=== PATIENT | male | born 1985 | race Caucasian/White ===

== ENCOUNTER 2021-02-05 09:45 | Inpatient (IN) | payer OTHER ==
[2021-02-05 11:16] LABS: CHLORIDE,CL 102 mmol/L (98-107); SODIUM,NA 139 mmol/L (136-145)
[2021-02-05 11:17] LABS: ANION GAP 12.8 mmol/L (5-15)
[2021-02-05] MEDS ORDERED: Acetaminophen 325 MG Tab PO PRN (11:19)
[2021-02-05] MEDS ORDERED: REMDESIVIR 200 MG in Sodium Chloride 0.9% 250 ML IV ONE (11:45)
--- NOTE | 2021-02-05 12:06 | PCM.HP.2 ---
H&P History of Present Illness - General Date of Service: 02/05/21 Admit Problem/Dx: Admission Diagnosis/Problem Admission Diagnosis/Problem Hypoxia Source of Information: Patient History Limitations: Reports: No Limitations - History of Present Illness Initial Comments - Free Text/Narative: Mr. Soriano is a 35 yo male with no PMH who presented to the clinic yesterday for worsening shortness of breath. He started with cough, rhinorrhea, congestion, loss of taste/smell, fever, and shortness of breath around 01/24. Most symptoms have improved/resolved. He is still feeling short of breath and that symptom has been progressively worsening. His has not been getting much sleep as she has felt the need to keep an eye on him at night due to breathing abnormalities. He can barely do much of anything before he starts to feel short of breath. His cough is minimal and he has had no recurrence of fever. Appetite is not great but he is eating/drinking ok. No myalgias or headaches. He has no history of any lung issues. He is a former smoker but quit 15 years ago. Hospitalization was discussed yesterday but then his O2 saturations improved. He was started on dexamethasone, given a home monitoring kit, and advised to return to clinic to follow up today. Upon arrival to the clinic, his oxygen saturations were in the upper 80's and he was started on oxygen. His reports that at home his saturations have ranged from 87-92%. - Related Data Allergies/Adverse Reactions: Allergies Allergy/AdvReac Type Severity Reaction Status Date / Time No Known Drug Allergies Allergy no known Verified 02/05/21 10:19 drug allergies Home Medications: Home Meds Ascorbate Calcium [Vitamin C] 500 mg PO DAILY 02/05/21 [History] Multivits,Ca,Min/Iron/FA/Lycop [Men Under 50 Multivitamin Tab] 1 tab PO DAILY 02/05/21 [History] Zinc 50 mg PO DAILY 02/05/21 [History] dexAMETHasone [Dexamethasone] 6 mg PO DAILY 02/05/21 [History] Past Medical History - Past Health History Medical/Surgical History: Denies Medical/Surgical History - Infectious Disease History Infectious Disease History: Reports: Novel Coronavirus Social & Family History - Family History Respiratory: Reports: Asthma (dad) - Tobacco Use Tobacco Use Status *Q: Former Tobacco User - Alcohol Use Alcohol Use History: No Days Per Week of Alcohol Use: 1 Number of Drinks Per Day: 2 Total Drinks Per Week: 2 Alcohol Use in Last Twelve Months: Yes Alcohol Use Frequency: Rarely - Recreational Drug Use Recreational Drug Use: No Drug Use in Last 12 Months: No - Living Situation & Occupation Living situation: Reports: , with Family Occupation: Employed ([employer]) H&P Review of Systems - Review of Systems: Review Of Systems: See Below General: Reports: No Symptoms HEENT: Reports: No Symptoms Pulmonary: Reports: Shortness of Breath, Cough Cardiovascular: Reports: No Symptoms Gastrointestinal: Reports: No Symptoms Genitourinary: Reports: No Symptoms Musculoskeletal: Reports: No Symptoms Skin: Reports: No Symptoms Psychiatric: Reports: No Symptoms Neurological: Reports: No Symptoms Hematologic/Lymphatic: Reports: No Symptoms Exam - Exam Exam: See Below - Vital Signs Vital Signs: Last Vital Signs Temp 36.7 C 02/05/21 09:51 Pulse 90 02/05/21 09:51 Resp 16 02/05/21 09:51 BP 117/79 02/05/21 09:51 Pulse Ox 98 02/05/21 11:19 Weight: 95.254 kg - Exam General: Alert, Oriented, Cooperative HEENT: Conjunctiva Clear, Mucosa Moist & [place], Posterior Pharynx Clear, Pupils Equal, Pupils Reactive Neck: Supple, Trachea Midline. No: Lymphadenopathy, Thyromegaly Lungs: Normal Respiratory Effort, Crackles (scattered throughout the lungs bilaterally) Cardiovascular: Regular Rate, Regular Rhythm, Normal S1, Normal S2 GI/Abdominal Exam: Normal Bowel Sounds, Soft, Non-Tender, No Organomegaly, No Distention, No Mass Extremities: Normal Inspection, Normal Range of Motion, Non-Tender, No Pedal Edema, Normal Capillary Refill Peripheral Pulses: 2+: Radial (L), Radial (R) Skin: Warm, Dry, Intact Neuro Extensive - Mental Status: Alert, Oriented x3, Normal Cognition - Patient Data Lab Results Last 24 hrs: Laboratory Results - last 24 hr 02/05/21 02/05/21 02/05/21 Range/Units 10:45 10:45 10:45 WBC 7.7 (4.0-10.0) x10^3/uL RBC 4.92 (4.5-6.0) x10^6/uL Hgb 15.2 (14.0-18.0) g/dL Hct 42.6 (40.0-52.0) % MCV 86.6 (78.0-93.0) fL MCH 30.9 (26.0-32.0) pg MCHC 35.7 (32.0-36.0) g/dL RDW Coeff of Jaya 11.3 (10.0-15.0) % Plt Count 342 (130-400) x10^3/uL Add Manual Diff Yes Neutrophils % (Manual) 87 H (50-80) % Band Neutrophils % 2 (0-6) % Lymphocytes % (Manual) 5 L (25-50) % Atypical Lymphs % 2 H (0) % Monocytes % (Manual) 4 (2-11) % Absolute Neutrophils 6.9 (1.8-7.7) x10^3/uL Lymphocytes # (Manual) 0.5 L (1.0-4.8) x10^3/uL Monocytes # (Manual) 0.3 (0.0-0.8) x10^3/uL PT 10.6 (9.9-12.5) SEC INR 1.0 L (2.0-3.5) Sodium 139 (136-145) mmol/L Potassium 3.8 (3.5-5.1) mmol/L Chloride 102 (98-107) mmol/L Carbon Dioxide 28 (21-32) mmol/L Anion Gap 12.8 (5-15) mmol/L BUN 17 (7-18) mg/dL Creatinine 0.9 (0.70-1.30) mg/dL Est Cr Clr Drug Dosing TNP Estimated GFR (MDRD) > 60 Glucose 149 H (70-99) mg/dL Calcium 9.0 (8.5-10.1) mg/dL Corrected Calcium 10.0 (8.5-10.1) mg/dL Ferritin (26-388) ng/mL Total Bilirubin 0.8 (0.2-1.0) mg/dL AST 55 H (15-37) U/L ALT 117 H (16-63) U/L Alkaline Phosphatase 67 (46-116) U/L Lactate Dehydrogenase 355 H (85-227) U/L C-Reactive Protein 15.5 H (<=0.9) mg/dL Total Protein 7.2 (6.4-8.2) g/dL Albumin 2.8 L (3.4-5.0) g/dL Globulin 4.4 Albumin/Globulin Ratio 0.64 02/05/21 Range/Units 10:45 WBC (4.0-10.0) x10^3/uL RBC (4.5-6.0) x10^6/uL Hgb (14.0-18.0) g/dL Hct (40.0-52.0) % MCV (78.0-93.0) fL MCH (26.0-32.0) pg MCHC (32.0-36.0) g/dL RDW Coeff of Jaya (10.0-15.0) % Plt Count (130-400) x10^3/uL Add Manual Diff Neutrophils % (Manual) (50-80) % Band Neutrophils % (0-6) % Lymphocytes % (Manual) (25-50) % Atypical Lymphs % (0) % Monocytes % (Manual) (2-11) % Absolute Neutrophils (1.8-7.7) x10^3/uL Lymphocytes # (Manual) (1.0-4.8) x10^3/uL Monocytes # (Manual) (0.0-0.8) x10^3/uL PT (9.9-12.5) SEC INR (2.0-3.5) Sodium (136-145) mmol/L Potassium (3.5-5.1) mmol/L Chloride (98-107) mmol/L Carbon Dioxide (21-32) mmol/L Anion Gap (5-15) mmol/L BUN (7-18) mg/dL Creatinine (0.70-1.30) mg/dL Est Cr Clr Drug Dosing Estimated GFR (MDRD) Glucose (70-99) mg/dL Calcium (8.5-10.1) mg/dL Corrected Calcium (8.5-10.1) mg/dL Ferritin 2574 H (26-388) ng/mL Total Bilirubin (0.2-1.0) mg/dL AST (15-37) U/L ALT (16-63) U/L Alkaline Phosphatase (46-116) U/L Lactate Dehydrogenase (85-227) U/L C-Reactive Protein (<=0.9) mg/dL Total Protein (6.4-8.2) g/dL Albumin (3.4-5.0) g/dL Globulin Albumin/Globulin Ratio Result Diagrams: 02/05/21 10:45 02/05/21 10:45 Sepsis Event Note - Focused Exam Vital Signs: Vital Signs Temp Pulse Resp BP Pulse Ox Pulse Ox 02/05/21 11:19 98 02/05/21 09:51 36.7 C 90 16 117/79 98 - Problem List (1) COVID-19 SNOMED Code(s): 265701788 ICD Code: U07.1 - COVID-19 Status: Acute Current Visit: Yes (2) Respiratory failure SNOMED Code(s): 501793689 ICD Code: J96.90 - RESPIRATORY FAILURE, UNSP, UNSP W HYPOXIA OR HYPERCAPNIA Status: Acute Current Visit: Yes Qualifiers: Chronicity: acute Respiratory failure complication: hypoxia Qualified Code(s): J96.01 - Acute respiratory failure with hypoxia Problem List Initiated/Reviewed/Updated: Yes Orders Last 24hrs: Active Orders 24 hr Category Date Time Status Admission Status [Patient Status] [ADT] Routine ADT 02/05/21 10:18 Active Notify Provider Vital Signs [RC] 02,06,10,14,18,22 Care 02/05/21 11:19 Active Oxygen Therapy [RC] 08,20 Care 02/05/21 11:19 Active Up ad Belkis [RC] 08,20 Care 02/05/21 11:19 Active VTE/DVT Education [RC] .PRN Care 02/05/21 11:19 Active Vital Signs [RC] 02,06,10,14,18,22 Care 02/05/21 11:19 Active Regular Diet [DIET] Diet 02/05/21 Lunch Active C-REACTIVE PROTEIN [CHEM] Routine Lab 02/06/21 05:11 Ordered CBC WITH AUTO DIFF [HEME] Routine Lab 02/06/21 05:11 Ordered CREATININE W/GFR [CHEM] Routine Lab 02/06/21 05:11 Ordered FERRITIN [CHEM] Routine Lab 02/06/21 05:11 Ordered HEPATIC FUNCTION PANEL,HFP [CHEM] DAILY Lab 02/06/21 11:30 Ordered HEPATIC FUNCTION PANEL,HFP [CHEM] DAILY Lab 02/07/21 11:30 Ordered HEPATIC FUNCTION PANEL,HFP [CHEM] DAILY Lab 02/08/21 11:30 Ordered HEPATIC FUNCTION PANEL,HFP [CHEM] DAILY Lab 02/09/21 11:30 Ordered LACTATE DEHYDROGENASE,LDH [CHEM] Routine Lab 02/06/21 05:11 Ordered Acetaminophen [TylenoL] Med 02/05/21 11:19 Active 650 mg PO Q4H PRN Enoxaparin [Lovenox] Med 02/05/21 12:00 Active 40 mg SUBCUT DAILY@1200 Remdesivir 200 mg Med 02/05/21 11:45 Active Sodium Chloride 0.9% [Normal Saline] 250 ml IV ONETIME Resuscitation Status Routine Resus Stat 02/05/21 11:19 Ordered Medication Orders Acetaminophen (Acetaminophen 325 Mg Tab) 650 mg PO Q4H PRN PRN Reason: Pain (Mild 1-3)/fever Enoxaparin Sodium (Enoxaparin 40 Mg/0.4 Ml Syringe) 40 mg SUBCUT DAILY@1200 ASHISH Remdesivir 200 mg/ Sodium (Chloride) 250 mls @ 250 mls/hr IV ONETIME ONE Stop: 02/05/21 12:44 Assessment/Plan Comment:: 35 yo male admitted with COVID-19 and associated hypoxic respiratory failure. #1 COVID-19 #2 Hypoxic respiratory failure, secondary to #1 - Criteria for hospitalization include new oxygen requirement. - Will titrate to keep him >90% saturations. Will also wean as able. - Discussed remdesivir, specifically noting more worrisome side effects of allergic reaction and liver failure. He is ok with this. Will do 200 mg IV today and 100 mg IV daily x 4 more days. - Labs done on admit are reviewed. No unexpected concerns. Will need to be repeated daily. - Will also continue dexamethasone 6 mg daily. - No wheezing; therefore, no role for nebs at this time. - Status is guarded but I am optimistic given his age and otherwise lack of health conditions. Patient will be admitted to acute - up to 5 days depending on response to remdesivir. Code status is full - discussed on admission. Will do lovenox for VTE prophylaxis.
[2021-02-05] MEDS: Enoxaparin 40 MG/0.4 ML Syringe SUBCUT SCH (12:35)
[2021-02-05] MEDS ORDERED: Sodium Chloride 0.9% 10 ML Syringe FLUSH PRN (17:45)
[2021-02-05] MEDS: Ascorbic Acid 500 MG Tab PO SCH (19:47)
[2021-02-06] MEDS: dexAMETHasone 2 MG, dexAMETHasone 4 MG PO SCH ×2 (08:46)
[2021-02-06] MEDS: Cholecalciferol (Vitamin D3) 25 MCG Tab PO SCH (08:46)
[2021-02-06] MEDS: Ascorbic Acid 500 MG Tab PO SCH ×2 (08:47→20:16)
[2021-02-06] MEDS: Zinc Sulfate 220 MG Cap PO SCH (08:47)
--- NOTE | 2021-02-06 11:12 | PCM.PN ---
- General Info Date of Service: 02/06/21 Subjective Update: 35 yo male hospital day #2 admitted with acute hypoxic respiratory failure secondary to COVID. He states he is doing "ok." Did not sleep great last night. Is coughing more and getting more up with his coughing. He does not feel he has been too short of breath but he also has only been up and around his small hospital room. Appetite seems better today. He is not having any chest pain. No vomiting or diarrhea. - Review of Systems General: Reports: No Symptoms HEENT: Reports: No Symptoms Pulmonary: Reports: Shortness of Breath, Cough, Sputum Cardiovascular: Reports: No Symptoms Gastrointestinal: Reports: No Symptoms Genitourinary: Reports: No Symptoms Musculoskeletal: Reports: No Symptoms Skin: Reports: No Symptoms Neurological: Reports: No Symptoms - Patient Data Vitals - Most Recent: Last Vital Signs Temp 36.9 C 02/06/21 09:21 Pulse 92 02/06/21 09:21 Resp 17 02/06/21 09:21 BP 121/65 02/06/21 09:21 Pulse Ox 94 L 02/06/21 09:21 Weight - Most Recent: 95.254 kg I&O - Last 24 Hours: Intake & Output 02/05/21 02/06/21 02/06/21 22:59 06:59 14:59 Intake Total 1161 Output Total 250 Balance 1161 -250 Lab Results Last 24 Hours: Laboratory Results - last 24 hr 02/05/21 02/05/21 02/05/21 Range/Units 10:45 10:45 10:45 WBC 7.7 (4.0-10.0) x10^3/uL RBC 4.92 (4.5-6.0) x10^6/uL Hgb 15.2 (14.0-18.0) g/dL Hct 42.6 (40.0-52.0) % MCV 86.6 (78.0-93.0) fL MCH 30.9 (26.0-32.0) pg MCHC 35.7 (32.0-36.0) g/dL RDW Coeff of Jaya 11.3 (10.0-15.0) % Plt Count 342 (130-400) x10^3/uL Immature Gran % (Auto) (0.00-0.43) % Neut % (Auto) (50.0-80.0) % Lymph % (Auto) (25.0-50.0) % [place] % (Auto) (2.0-11.0) % Eos % (Auto) (0.0-4.0) % Baso % (Auto) (0.2-1.2) % Neut # (Auto) (1.8-7.7) x10^3/uL Lymph # (Auto) (1.0-4.8) x10^3/uL [place] # (Auto) (0.0-0.8) x10^3/uL Eos # (Auto) (0.0-0.5) x10^3/uL Baso # (Auto) (0.0-0.2) x10^3/uL Immature Gran # (Auto) (0.00-0.07) x10^3/uL Add Manual Diff Yes Neutrophils % (Manual) 87 H (50-80) % Band Neutrophils % 2 (0-6) % Lymphocytes % (Manual) 5 L (25-50) % Atypical Lymphs % 2 H (0) % Monocytes % (Manual) 4 (2-11) % Absolute Neutrophils 6.9 (1.8-7.7) x10^3/uL Lymphocytes # (Manual) 0.5 L (1.0-4.8) x10^3/uL Monocytes # (Manual) 0.3 (0.0-0.8) x10^3/uL PT 10.6 (9.9-12.5) SEC INR 1.0 L (2.0-3.5) Sodium 139 (136-145) mmol/L Potassium 3.8 (3.5-5.1) mmol/L Chloride 102 (98-107) mmol/L Carbon Dioxide 28 (21-32) mmol/L Anion Gap 12.8 (5-15) mmol/L BUN 17 (7-18) mg/dL Creatinine 0.9 (0.70-1.30) mg/dL Est Cr Clr Drug Dosing TNP Estimated GFR (MDRD) > 60 Glucose 149 H (70-99) mg/dL Calcium 9.0 (8.5-10.1) mg/dL Corrected Calcium 10.0 (8.5-10.1) mg/dL Ferritin (26-388) ng/mL Total Bilirubin 0.8 (0.2-1.0) mg/dL Direct Bilirubin (0.00-0.20) mg/dL Indirect Bilirubin AST 55 H (15-37) U/L ALT 117 H (16-63) U/L Alkaline Phosphatase 67 (46-116) U/L Lactate Dehydrogenase 355 H (85-227) U/L C-Reactive Protein 15.5 H (<=0.9) mg/dL Total Protein 7.2 (6.4-8.2) g/dL Albumin 2.8 L (3.4-5.0) g/dL Globulin 4.4 Albumin/Globulin Ratio 0.64 02/05/21 02/06/21 02/06/21 Range/Units 10:45 07:00 07:00 WBC 10.0 (4.0-10.0) x10^3/uL RBC 4.50 (4.5-6.0) x10^6/uL Hgb 14.0 (14.0-18.0) g/dL Hct 39.3 L (40.0-52.0) % MCV 87.3 (78.0-93.0) fL MCH 31.1 (26.0-32.0) pg MCHC 35.6 (32.0-36.0) g/dL RDW Coeff of Jaya 11.4 (10.0-15.0) % Plt Count 411 H (130-400) x10^3/uL Immature Gran % (Auto) 0.60 H (0.00-0.43) % Neut % (Auto) 77.5 (50.0-80.0) % Lymph % (Auto) 11.8 L (25.0-50.0) % [place] % (Auto) 9.8 (2.0-11.0) % Eos % (Auto) 0.1 (0.0-4.0) % Baso % (Auto) 0.2 (0.2-1.2) % Neut # (Auto) 7.7 (1.8-7.7) x10^3/uL Lymph # (Auto) 1.2 (1.0-4.8) x10^3/uL [place] # (Auto) 1.0 H (0.0-0.8) x10^3/uL Eos # (Auto) 0.0 (0.0-0.5) x10^3/uL Baso # (Auto) 0.0 (0.0-0.2) x10^3/uL Immature Gran # (Auto) 0.06 (0.00-0.07) x10^3/uL Add Manual Diff Neutrophils % (Manual) (50-80) % Band Neutrophils % (0-6) % Lymphocytes % (Manual) (25-50) % Atypical Lymphs % (0) % Monocytes % (Manual) (2-11) % Absolute Neutrophils (1.8-7.7) x10^3/uL Lymphocytes # (Manual) (1.0-4.8) x10^3/uL Monocytes # (Manual) (0.0-0.8) x10^3/uL PT (9.9-12.5) SEC INR (2.0-3.5) Sodium (136-145) mmol/L Potassium (3.5-5.1) mmol/L Chloride (98-107) mmol/L Carbon Dioxide (21-32) mmol/L Anion Gap (5-15) mmol/L BUN (7-18) mg/dL Creatinine (0.70-1.30) mg/dL Est Cr Clr Drug Dosing Estimated GFR (MDRD) Glucose (70-99) mg/dL Calcium (8.5-10.1) mg/dL Corrected Calcium (8.5-10.1) mg/dL Ferritin 2574 H (26-388) ng/mL Total Bilirubin 0.5 (0.2-1.0) mg/dL Direct Bilirubin 0.14 (0.00-0.20) mg/dL Indirect Bilirubin 0.36 AST 86 H (15-37) U/L ALT 202 H (16-63) U/L Alkaline Phosphatase 60 (46-116) U/L Lactate Dehydrogenase (85-227) U/L C-Reactive Protein (<=0.9) mg/dL Total Protein 6.5 (6.4-8.2) g/dL Albumin 2.6 L (3.4-5.0) g/dL Globulin 3.9 Albumin/Globulin Ratio 0.67 02/06/21 02/06/21 Range/Units 07:00 07:00 WBC (4.0-10.0) x10^3/uL RBC (4.5-6.0) x10^6/uL Hgb (14.0-18.0) g/dL Hct (40.0-52.0) % MCV (78.0-93.0) fL MCH (26.0-32.0) pg MCHC (32.0-36.0) g/dL RDW Coeff of Jaya (10.0-15.0) % Plt Count (130-400) x10^3/uL Immature Gran % (Auto) (0.00-0.43) % Neut % (Auto) (50.0-80.0) % Lymph % (Auto) (25.0-50.0) % [place] % (Auto) (2.0-11.0) % Eos % (Auto) (0.0-4.0) % Baso % (Auto) (0.2-1.2) % Neut # (Auto) (1.8-7.7) x10^3/uL Lymph # (Auto) (1.0-4.8) x10^3/uL [place] # (Auto) (0.0-0.8) x10^3/uL Eos # (Auto) (0.0-0.5) x10^3/uL Baso # (Auto) (0.0-0.2) x10^3/uL Immature Gran # (Auto) (0.00-0.07) x10^3/uL Add Manual Diff Neutrophils % (Manual) (50-80) % Band Neutrophils % (0-6) % Lymphocytes % (Manual) (25-50) % Atypical Lymphs % (0) % Monocytes % (Manual) (2-11) % Absolute Neutrophils (1.8-7.7) x10^3/uL Lymphocytes # (Manual) (1.0-4.8) x10^3/uL Monocytes # (Manual) (0.0-0.8) x10^3/uL PT (9.9-12.5) SEC INR (2.0-3.5) Sodium (136-145) mmol/L Potassium (3.5-5.1) mmol/L Chloride (98-107) mmol/L Carbon Dioxide (21-32) mmol/L Anion Gap (5-15) mmol/L BUN (7-18) mg/dL Creatinine 0.8 (0.70-1.30) mg/dL Est Cr Clr Drug Dosing 149.05 Estimated GFR (MDRD) > 60 Glucose (70-99) mg/dL Calcium (8.5-10.1) mg/dL Corrected Calcium (8.5-10.1) mg/dL Ferritin 2492 H (26-388) ng/mL Total Bilirubin (0.2-1.0) mg/dL Direct Bilirubin (0.00-0.20) mg/dL Indirect Bilirubin AST (15-37) U/L ALT (16-63) U/L Alkaline Phosphatase (46-116) U/L Lactate Dehydrogenase 306 H (85-227) U/L C-Reactive Protein 6.5 H (<=0.9) mg/dL Total Protein (6.4-8.2) g/dL Albumin (3.4-5.0) g/dL Globulin Albumin/Globulin Ratio Med Orders - Current: Current Medications Acetaminophen (Acetaminophen 325 Mg Tab) 650 mg PO Q4H PRN PRN Reason: Pain (Mild 1-3)/fever Ascorbic Acid (Ascorbic Acid 500 Mg Tab) 1,000 mg PO BID [facility] Last Admin: 02/06/21 08:47 Dose: 1,000 mg Documented by: Cholecalciferol (Cholecalciferol (Vitamin D3) 25 Mcg Tab) 50 mcg PO DAILY [facility] Last Admin: 02/06/21 08:46 Dose: 50 mcg Documented by: Dexamethasone 2 mg/ (Dexamethasone 4 mg) 6 mg PO DAILY [facility] Last Admin: 02/06/21 08:46 Dose: 6 mg Documented by: Enoxaparin Sodium (Enoxaparin 40 Mg/0.4 Ml Syringe) 40 mg SUBCUT DAILY@1200 [facility] Last Admin: 02/05/21 12:35 Dose: 40 mg Documented by: Remdesivir 100 mg/ Sodium (Chloride) 100 mls @ 100 mls/hr IV Q24H [facility] Stop: 02/09/21 13:59 Sodium Chloride (Sodium Chloride 0.9% 10 Ml Syringe) 10 ml FLUSH ASDIRECTED PRN PRN Reason: Keep Vein Open Zinc Sulfate (Zinc Sulfate 220 Mg Cap) 220 mg PO DAILY [facility] Last Admin: 02/06/21 08:47 Dose: 220 mg Documented by: Discontinued Medications Remdesivir 200 mg/ Sodium (Chloride) 250 mls @ 250 mls/hr IV ONETIME ONE Stop: 02/05/21 12:44 Last Admin: 02/05/21 12:35 Dose: 250 mls/hr Documented by: - Exam General: Alert, Oriented, Cooperative, No Acute Distress HEENT: Mucous Membr. Moist/[place] Neck: Supple, Trachea Midline, No Thyromegaly. No: Lymphadenopathy Lungs: Normal Respiratory Effort, Crackles (scattered throughout the lungs, especially in the lower lung house bilaterally) Cardiovascular: Regular Rate, Regular Rhythm, No Murmurs GI/Abdominal Exam: Normal Bowel Sounds, Soft, Non-Tender, No Organomegaly, No Distention, No Mass Extremities: Normal Inspection, Non-Tender, No Pedal Edema, Normal Capillary Refill Peripheral Pulses: 2+: Radial (L), Radial (R) Skin: Warm, Dry, Intact Neurological: No New Focal Deficit - Patient Data Lab Results Last 24 hrs: Laboratory Results - last 24 hr 02/05/21 02/05/21 02/05/21 Range/Units 10:45 10:45 10:45 WBC 7.7 (4.0-10.0) x10^3/uL RBC 4.92 (4.5-6.0) x10^6/uL Hgb 15.2 (14.0-18.0) g/dL Hct 42.6 (40.0-52.0) % MCV 86.6 (78.0-93.0) fL MCH 30.9 (26.0-32.0) pg MCHC 35.7 (32.0-36.0) g/dL RDW Coeff of Jaya 11.3 (10.0-15.0) % Plt Count 342 (130-400) x10^3/uL Immature Gran % (Auto) (0.00-0.43) % Neut % (Auto) (50.0-80.0) % Lymph % (Auto) (25.0-50.0) % [place] % (Auto) (2.0-11.0) % Eos % (Auto) (0.0-4.0) % Baso % (Auto) (0.2-1.2) % Neut # (Auto) (1.8-7.7) x10^3/uL Lymph # (Auto) (1.0-4.8) x10^3/uL [place] # (Auto) (0.0-0.8) x10^3/uL Eos # (Auto) (0.0-0.5) x10^3/uL Baso # (Auto) (0.0-0.2) x10^3/uL Immature Gran # (Auto) (0.00-0.07) x10^3/uL Add Manual Diff Yes Neutrophils % (Manual) 87 H (50-80) % Band Neutrophils % 2 (0-6) % Lymphocytes % (Manual) 5 L (25-50) % Atypical Lymphs % 2 H (0) % Monocytes % (Manual) 4 (2-11) % Absolute Neutrophils 6.9 (1.8-7.7) x10^3/uL Lymphocytes # (Manual) 0.5 L (1.0-4.8) x10^3/uL Monocytes # (Manual) 0.3 (0.0-0.8) x10^3/uL PT 10.6 (9.9-12.5) SEC INR 1.0 L (2.0-3.5) Sodium 139 (136-145) mmol/L Potassium 3.8 (3.5-5.1) mmol/L Chloride 102 (98-107) mmol/L Carbon Dioxide 28 (21-32) mmol/L Anion Gap 12.8 (5-15) mmol/L BUN 17 (7-18) mg/dL Creatinine 0.9 (0.70-1.30) mg/dL Est Cr Clr Drug Dosing TNP Estimated GFR (MDRD) > 60 Glucose 149 H (70-99) mg/dL Calcium 9.0 (8.5-10.1) mg/dL Corrected Calcium 10.0 (8.5-10.1) mg/dL Ferritin (26-388) ng/mL Total Bilirubin 0.8 (0.2-1.0) mg/dL Direct Bilirubin (0.00-0.20) mg/dL Indirect Bilirubin AST 55 H (15-37) U/L ALT 117 H (16-63) U/L Alkaline Phosphatase 67 (46-116) U/L Lactate Dehydrogenase 355 H (85-227) U/L C-Reactive Protein 15.5 H (<=0.9) mg/dL Total Protein 7.2 (6.4-8.2) g/dL Albumin 2.8 L (3.4-5.0) g/dL Globulin 4.4 Albumin/Globulin Ratio 0.64 02/05/21 02/06/21 02/06/21 Range/Units 10:45 07:00 07:00 WBC 10.0 (4.0-10.0) x10^3/uL RBC 4.50 (4.5-6.0) x10^6/uL Hgb 14.0 (14.0-18.0) g/dL Hct 39.3 L (40.0-52.0) % MCV 87.3 (78.0-93.0) fL MCH 31.1 (26.0-32.0) pg MCHC 35.6 (32.0-36.0) g/dL RDW Coeff of Jaya 11.4 (10.0-15.0) % Plt Count 411 H (130-400) x10^3/uL Immature Gran % (Auto) 0.60 H (0.00-0.43) % Neut % (Auto) 77.5 (50.0-80.0) % Lymph % (Auto) 11.8 L (25.0-50.0) % [place] % (Auto) 9.8 (2.0-11.0) % Eos % (Auto) 0.1 (0.0-4.0) % Baso % (Auto) 0.2 (0.2-1.2) % Neut # (Auto) 7.7 (1.8-7.7) x10^3/uL Lymph # (Auto) 1.2 (1.0-4.8) x10^3/uL [place] # (Auto) 1.0 H (0.0-0.8) x10^3/uL Eos # (Auto) 0.0 (0.0-0.5) x10^3/uL Baso # (Auto) 0.0 (0.0-0.2) x10^3/uL Immature Gran # (Auto) 0.06 (0.00-0.07) x10^3/uL Add Manual Diff Neutrophils % (Manual) (50-80) % Band Neutrophils % (0-6) % Lymphocytes % (Manual) (25-50) % Atypical Lymphs % (0) % Monocytes % (Manual) (2-11) % Absolute Neutrophils (1.8-7.7) x10^3/uL Lymphocytes # (Manual) (1.0-4.8) x10^3/uL Monocytes # (Manual) (0.0-0.8) x10^3/uL PT (9.9-12.5) SEC INR (2.0-3.5) Sodium (136-145) mmol/L Potassium (3.5-5.1) mmol/L Chloride (98-107) mmol/L Carbon Dioxide (21-32) mmol/L Anion Gap (5-15) mmol/L BUN (7-18) mg/dL Creatinine (0.70-1.30) mg/dL Est Cr Clr Drug Dosing Estimated GFR (MDRD) Glucose (70-99) mg/dL Calcium (8.5-10.1) mg/dL Corrected Calcium (8.5-10.1) mg/dL Ferritin 2574 H (26-388) ng/mL Total Bilirubin 0.5 (0.2-1.0) mg/dL Direct Bilirubin 0.14 (0.00-0.20) mg/dL Indirect Bilirubin 0.36 AST 86 H (15-37) U/L ALT 202 H (16-63) U/L Alkaline Phosphatase 60 (46-116) U/L Lactate Dehydrogenase (85-227) U/L C-Reactive Protein (<=0.9) mg/dL Total Protein 6.5 (6.4-8.2) g/dL Albumin 2.6 L (3.4-5.0) g/dL Globulin 3.9 Albumin/Globulin Ratio 0.67 02/06/21 02/06/21 Range/Units 07:00 07:00 WBC (4.0-10.0) x10^3/uL RBC (4.5-6.0) x10^6/uL Hgb (14.0-18.0) g/dL Hct (40.0-52.0) % MCV (78.0-93.0) fL MCH (26.0-32.0) pg MCHC (32.0-36.0) g/dL RDW Coeff of Jaya (10.0-15.0) % Plt Count (130-400) x10^3/uL Immature Gran % (Auto) (0.00-0.43) % Neut % (Auto) (50.0-80.0) % Lymph % (Auto) (25.0-50.0) % [place] % (Auto) (2.0-11.0) % Eos % (Auto) (0.0-4.0) % Baso % (Auto) (0.2-1.2) % Neut # (Auto) (1.8-7.7) x10^3/uL Lymph # (Auto) (1.0-4.8) x10^3/uL [place] # (Auto) (0.0-0.8) x10^3/uL Eos # (Auto) (0.0-0.5) x10^3/uL Baso # (Auto) (0.0-0.2) x10^3/uL Immature Gran # (Auto) (0.00-0.07) x10^3/uL Add Manual Diff Neutrophils % (Manual) (50-80) % Band Neutrophils % (0-6) % Lymphocytes % (Manual) (25-50) % Atypical Lymphs % (0) % Monocytes % (Manual) (2-11) % Absolute Neutrophils (1.8-7.7) x10^3/uL Lymphocytes # (Manual) (1.0-4.8) x10^3/uL Monocytes # (Manual) (0.0-0.8) x10^3/uL PT (9.9-12.5) SEC INR (2.0-3.5) Sodium (136-145) mmol/L Potassium (3.5-5.1) mmol/L Chloride (98-107) mmol/L Carbon Dioxide (21-32) mmol/L Anion Gap (5-15) mmol/L BUN (7-18) mg/dL Creatinine 0.8 (0.70-1.30) mg/dL Est Cr Clr Drug Dosing 149.05 Estimated GFR (MDRD) > 60 Glucose (70-99) mg/dL Calcium (8.5-10.1) mg/dL Corrected Calcium (8.5-10.1) mg/dL Ferritin 2492 H (26-388) ng/mL Total Bilirubin (0.2-1.0) mg/dL Direct Bilirubin (0.00-0.20) mg/dL Indirect Bilirubin AST (15-37) U/L ALT (16-63) U/L Alkaline Phosphatase (46-116) U/L Lactate Dehydrogenase 306 H (85-227) U/L C-Reactive Protein 6.5 H (<=0.9) mg/dL Total Protein (6.4-8.2) g/dL Albumin (3.4-5.0) g/dL Globulin Albumin/Globulin Ratio Result Diagrams: 02/06/21 07:00 02/06/21 07:00 Sepsis Event Note - Evaluation Sepsis Screening Result: No Definite Risk - Focused Exam Vital Signs: Vital Signs Temp Pulse Resp BP BP Pulse Ox 02/06/21 09:21 36.9 C 92 17 121/65 94 L 02/06/21 06:00 36.8 C 67 18 123/62 92 L 02/06/21 05:36 92 L 02/06/21 02:00 36.6 C 74 16 124/65 93 L - Problem List & Annotations (1) COVID-19 SNOMED Code(s): 205616796 Code(s): U07.1 - COVID-19 Status: Acute Current Visit: Yes (2) Respiratory failure SNOMED Code(s): 624987754 Code(s): J96.90 - RESPIRATORY FAILURE, UNSP, UNSP W HYPOXIA OR HYPERCAPNIA Status: Acute Current Visit: Yes Qualifiers: Chronicity: acute Respiratory failure complication: hypoxia Qualified Code(s): J96.01 - Acute respiratory failure with hypoxia - Problem List Review Problem List Initiated/Reviewed/Updated: Yes - My Orders Last 24 Hours: My Active Orders 02/05/21 10:18 Admission Status [Patient Status] [ADT] Routine 02/05/21 11:19 Notify Provider Vital Signs [RC] 02,06,10,14,18,22 Oxygen Therapy [RC] 08,20 Up ad [place]is [RC] 08,20 VTE/DVT Education [RC] .PRN Vital Signs [RC] 02,06,10,14,18,22 Acetaminophen [TylenoL] 650 mg PO Q4H PRN Resuscitation Status Routine 02/05/21 Lunch Regular Diet [DIET] 02/05/21 12:00 Enoxaparin [Lovenox] 40 mg SUBCUT DAILY@1200 Peripheral IV Insertion Adult [OM.PC] Routine 02/05/21 16:04 Overnight Pulse Oximetry [RC] 02,06,10,14,18,22 Pulse Oximetry Continuous Monitoring [OM.PC] Routine 02/05/21 17:45 Sodium Chloride 0.9% [Saline Flush] 10 ml FLUSH ASDIRECTED PRN 02/05/21 20:00 Ascorbic Acid [Vitamin C] 1,000 mg PO BID 02/06/21 08:00 Cholecalciferol (Vitamin D3) [Vitamin D3] 50 mcg PO DAILY Zinc Sulfate [Zincate] 220 mg PO DAILY dexAMETHasone 6 MG 6 mg PO DAILY 02/06/21 13:00 Remdesivir 100 mg Sodium Chloride 0.9% [Normal Saline] 100 ml IV Q24H 02/07/21 11:30 HEPATIC FUNCTION PANEL,HFP [CHEM] DAILY 02/08/21 11:30 HEPATIC FUNCTION PANEL,HFP [CHEM] DAILY 02/09/21 11:30 HEPATIC FUNCTION PANEL,HFP [CHEM] DAILY - Assessment Assessment:: 35 yo male hospital day #2 admitted with hypoxic respiratory failure secondary to COVID. Feels about the same as yesterday. - Plan Plan:: #1 COVID-19 #2 Hypoxic respiratory failure, secondary to #1 - Criteria for hospitalization include new oxygen requirement. - Will titrate to keep him >90% saturations. Will also wean as able. - Liver enzymes up slightly today. However, still appropriate to continue re mdesivir at 100 mg IV daily for up to 4 more days. Can be stopped early if he improves enough to go home. - Labs daily. - Continue dexamethasone 6 mg daily. Patient will be remain on acute - up to 5 days depending on response to remdesivir. Criteria for d/c would be completion of remdesivir or stability of O2 saturation on room air, whichever happens first. If he finishes his remdesivir and is still requiring O2, could be discharged home on oxygen. Code status is full - discussed on admission. Will do lovenox for VTE prophylaxis.
[2021-02-06] MEDS: Enoxaparin 40 MG/0.4 ML Syringe SUBCUT SCH (12:23)
[2021-02-06] MEDS ORDERED: REMDESIVIR 100 MG in Sodium Chloride 0.9% 100 ML IV SCH (13:00)
[2021-02-07 06:29] VITALS: BP 122/61; PULSE 66
[2021-02-07 08:08] LABS: CHLORIDE,CL 106 mmol/L (98-107); SODIUM,NA 141 mmol/L (136-145)
[2021-02-07] MEDS: Cholecalciferol (Vitamin D3) 25 MCG Tab PO SCH (09:33)
[2021-02-07] MEDS: Ascorbic Acid 500 MG Tab PO SCH (09:33)
[2021-02-07] MEDS: Zinc Sulfate 220 MG Cap PO SCH (09:33)
[2021-02-07] MEDS: dexAMETHasone 2 MG, dexAMETHasone 4 MG PO SCH ×2 (09:33)
--- NOTE | 2021-02-07 09:41 | PN ---
Progress Note for ROSEDNO BERNARD Date: 02/07/2021 Room #: VM.210 SUBJECTIVE: The patient is feeling fine. He is eager to be discharged home. He is not coughing, not short of breath. The patient had had onset of COVID symptoms on 01/24/2021. He was treated as an outpatient; however, he presented to the clinic on 02/05/2021 because the oxygen saturations have been dropping. He had been started on dexamethasone with a home monitoring kit. When he was seen in recheck in the clinic on 02/05, his saturations were 87% to 92%, felt to be in need of inpatient care. He has done very well. OBJECTIVE: Vital Signs: His temperature now is 36.7, pulse 66, blood pressure is 122/61, respiratory rate 16, saturations are 94% on room air. Heart: Regular rate and rhythm. Lungs: Clear to auscultation. Psychiatric: Affect is pleasant, bright. LAB WORK: His white blood cell count 7.4, hemoglobin 13.5, platelets 434, segs 90, 10 lymphs. Sodium is 141, potassium 4.0, creatinine 0.9. GFR greater than 60. His AST is down to 47, ALT 168. CRP 4.3. LDH was checked yesterday at 306. IMPRESSION: 1. COVID pneumonitis. 2. Hypoxemia, improved. 3. Respiratory failure, which is resolved. PLAN: We will discharge patient home. He is to complete his course of dexamethasone. He does not need remdesivir as he had the dose of 200 on 02/05 and 100 on 02/06 and 02/07. We will have him follow up with Cathy Hahn in a week's time. GM02/07/2021 09:16:13 MODL: 02/07/2021 09:36:56 /[id number]
--- NOTE | 2021-02-07 18:53 | DISCH ---
PRIMARY DIAGNOSES: 1. COVID-19 pneumonitis. 2. Hypoxemia. 3. Respiratory failure related to COVID, improved. SUMMARY OF ADMIT HISTORY AND PHYSICAL: The patient is a 35-year-old male who had initially presented to the clinic on 02/04/2021 after having been sick with coughing, runny nose, and congestion that actually started on 01/24/2021. His symptoms had improved. However, he was still feeling short of breath and was noted to be borderline, so he was placed on dexamethasone in the clinic. However, he returned the next day and his oxygen saturations were down to 87%, and so he was felt to need inpatient care to be placed on remdesivir. Other examination on admission showed that his blood pressure is 117/79, respiratory rate 16, pulse 90, and temperature 36.7. Lungs had crackles throughout lungs bilaterally. White blood cell count was 7.9, hemoglobin was 15.2, and platelets 342 with 87 segs, 2 basophils, and 5 lymphocytes. Sodium was 139, potassium 3.8, creatinine 0.9, GFR greater than 60, glucose 149, AST 55, ALT 117, LDH 355, CRP 15.5, and ferritin 2574. SUMMARY OF HOSPITAL COURSE: The patient was placed on oxygen. He received dexamethasone orally as well as remdesivir 200 mg given on 02/05/2021 and then 100 mg on 02/06/2021 as well as 02/07/2021. The patient's laboratory data showed that his white blood cell count stayed the same at 7.5 at the time of discharge. His platelets were 434, segs were 80, and 10 lymphocytes. Sodium was 140, potassium 4.0. His ferritin had improved on 02/06/2021 to 2492. His LFTs had a maximum bump of ALT up to 202 but then improved to 168 on 02/07/2021. CRP went from 15.5 on admission to 4.3 on day of discharge. The patient was able to be weaned from oxygen by the morning of 02/06/2021, and his O2 saturations stayed above 94%. He was up ambulating here to be discharged home. His lungs were clear to auscultation. Heart, regular rate and rhythm. MEDICATIONS: His medications at the time of discharge are multivitamin with vitamin D 1 pill daily, vitamin C 500 mg 1 pill daily, dexamethasone 6 mg daily for 8 more days, zinc 50 mg 1 pill daily, and Tylenol as needed. The patient was felt to have enough vitamin D in his multivitamin. FOLLOWUP: The patient is to be seen in the clinic in 1 week's time by his primary care provider, Cathy Hahn PA-C, and return sooner if he becomes more short of breath. Length of time doing discharge summary was less than 30 minutes. GM02/07/2021 13:49:32 MODL: 02/07/2021 18:47:56 /[id number]
== END 2021-02-07 10:20 | disposition home or self-care (01) | DRG 177 ==
LOC: VM.MS 09:45
PROVIDERS: ADMIT Family Medicine; ATTEND Family Medicine
PROC: XW033E5 Introduction of Remdesivir Anti-infective into Peripheral Vein, Percutaneous Approach, New Technology Group 5 (ICD-10-PCS; principal; 2021-02-05)
PROC: 3E0DX3Z Introduction of Anti-inflammatory into Mouth and Pharynx, External Approach (ICD-10-PCS; 2021-02-05)
DX: U07.1 COVID-19 (principal); J12.82 Pneumonia due to coronavirus disease 2019; J96.01 Acute respiratory failure with hypoxia; Z87.891 Personal history of nicotine dependence
CPT/HCPCS: 36415; 80053; 80076; 82565; 82728; 83615; 85025; 85610; 86140; A9270-GY; J1650; J7050; J8540